=== PATIENT | male | born 1970 | race Caucasian/White ===

== ENCOUNTER → 2016-12-22 | Outpatient (CLI) | payer BC ==
[~2016-12-22] MED LIST: HYDUNK; METO1TAB69 PO; PANT40TA PO; PRZCUNK
--- NOTE | 2016-12-23 05:49 | PAP/PSG TECHNICIAN REPORT ---
[facility] Coat Tailor Polysomnogram Report Study name: None Report date: 12/23/2016 Study date: 12/22/2016 Referring Physician: Madalyn AYALA M.D. Name: CYRIL VELAZQUEZ Interpreting Physician: John Ayala M.D. Date of : 1970 Coat Tailor: Meghann Phipps RPSGT. Sex: Male Age: 46 Study Type: PSG PAP Weight: 286 lbs Height: 46 years, Height 5' 10.5" BMI: 40.45 Medications: LISINOPRIL-HCTZ 10-12.5 MG, PRILOSEC 20 MG Patient History 46 yr-old male here for a new CPAP treatment study. He was found to be positive for severe DERRICK via a home sleep study. He was set up with an auto CPAP machine at home. He is having trouble with mask leak and tolerating higher pressures. He is using an Yakelin View full face mask size medium from [employer]. The test was started on room air and 4 CMH2O. ETCO2 testing was not utilized during this study. Room 1 Parameters Monitored NPSG: E1-M2, E2-M1, Fp1-M2, Fp2-M1, F3-M2, F4-M2, F4-M1, C3-M2, C4-M2, C4-M1, O1-M2, O2-M2, O2-M1, T3-M2, T4-M1, P3-M2, P4-M1, CHIN1, CHIN2, HR, EKG, Legs, PFLOW, SNOR, FLOW, CFLOW, Tidal Volume, THOR, ABDO, SpO2, PLTH, CPRESS, ETCO2 Wave, ETCO2, pH Sleep Architecture Sleep Stages Time at Lights Off 10:27:16 PM STAGES Time (min.) TST (%) Time at Lights On 4:56:16 AM Wake 69.0 -- Total Recording Time (TRT) 389.00 min. N1 24.5 8 Total Sleep Period (TSP) 361.5 min. N2 182.0 57 Total Sleep Time (TST) 320.0min. N3 4.5 1 Awake Time 69.0 min. REM 109.0 34 Wake after Sleep Onset 62.5 min. Sleep Efficiency (SE) 82 % Sleep Onset Latency (GLADIS) 6.5 min. Number of Stage 1 Shifts None Awakenings 16 Stage Changes 66 Number of REM periods 4 REM 109.0 34 REM Latency 45.5 min. NREM 211.0 66 Body Position Analysis Supine Right Left Side Prone Vertical Total Sleep Time (min.) 153.1 213.0 0.0 213.00 0.0 0.0 Total Sleep Time (%) 33% 67% 0% 67 0% N/A% Total Sleep Time REM (min.) 39.0 70.0 0.0 None 0.0 0.0 Total Sleep Time NREM (min.) 68.0 143.0 0.0 None 0.0 0.0 Intermittent Wake (min.) 46.1 12.6 10.3 None 0.0 0.0 Total Sleep Period (%) 35% None None None None None Arousals Myoclonus (PLM) * Events Count Index Events Count Index Spontaneous 17 3 Events Awake (PLMW) 90 78.3 Respiratory 24 4.9 Events Asleep w/ Arousal (PLMA) 4 0.8 PLM 4 1 Events Asleep w/o Arousal (PLMS) 128 24.0 Snoring 9 2 Total Asleep 132 24.8 Total 53 10 Total 222 34 Respiratory Analysis * CA OA MA CH H RERA Total Count 6 1 0 0 101 3 108 Index 1.1 0.2 0.0 0 18.9 1 20.8 Mean Duration 12.9 13.8 0.0 0.00 17.8 15.2 17.4 Longest Duration 15.8 13.8 0.0 0.00 0.0 16.1 33.8 Respiratory Event Summary Total Supine ~Supine Right Left Prone REM NREM Apneas Count 7 3 4 4 N/A N/A 0 7 Index 1.3 2 1 1.1 N/A N/A 0 2 Hypopneas (4% Desat) Count 101 83 18 18 N/A N/A 5 96 Index 18.9 46.5 5 5.1 N/A N/A 2.8 27.3 Apneas & All Hypopneas Count 108 86 22 22 N/A N/A 5 103 Index 20.3 48 6 6 N/A N/A 2.8 29.3 Respiratory Events (Application Chemist+All Hyp+RERA) Count 108 88 23 23 N/A N/A 5 103 Index 20.8 49 6 6.5 N/A N/A 2.8 30.1 Respiratory Related Arousal Count 24 88 10 10 N/A N/A 0 26 Index 4.9 9 3 3 N/A N/A 0 7 Snoring Analysis Supine Right Left Prone REM NREM Total Snore duration 32.2 min Snores count 356 1,447 N/A N/A 151 1,652 1,803 Snore mean duration 1.1 Sec Snores index 200 408 N/A N/A 83.1 469.8 338.1 TST with snoring (%) 10.0% Desaturation Event Summary: Minimum %SpO2 Event Count Mean/Min/Max Duration(sec.) Desaturation Index % Time In Bed > 90 169 20.0 / 6.3 / 54.3 49.1 55.4 86 - 90 32 17.8 / 6.5 / 42.3 13.4 38.4 81 - 85 0 N/A 0.0 5.3 76 - 80 0 N/A 0.0 0.9 71 - 75 0 N/A 0.0 0.0 66 - 70 0 N/A 0.0 0.0 61 - 65 0 N/A 0.0 0.0 56 - 60 0 N/A 0.0 0.0 51 - 55 0 N/A 0.0 0.0 < 50 0 N/A 0.0 0.0 Total REM NREM Awake <50% 0.0 min. 0.0 min. 0.0 min. 0.0 min. 51 - 60% 0.0 min. 0.0 min. 0.0 min. 0.0 min. 61 - 70% 0.0 min. 0.0 min. 0.0 min. 0.0 min. 71 - 80% 3.4 min. 0.0 min. 2.8 min. 0.7 min. 81 - 90% 162.9 min. 47.0 min. 103.2 min. 12.7 min. 91 - 100% 206.5 min. 62.0 min. 104.9 min. 39.6 min. Average 90 91 90 92 Minimum SpO2 74 86 74 77 Desaturation Event Index 28.1 5.0 35.3 43.5 # Desat. Events below 89% 139 6 115 18 Time(%) with Saturation below 89% 16.6 2.9 11.1 2.6 Time(min.) with Saturation below 89% 62.1 10.8 41.5 9.8 Time (mins) REM (mins) NREM (mins) % of TST SpO2 Below 90% 130 9 N121 24.6 SpO2 Below 88% 40 0 0 10 Heart Rate Analysis Min (bpm) Max (bpm) Average (bpm) Awake 58 225 95 NREM 63 189 90 REM 73 104 90 Overall 63 189 90 Supplemental O2 Values Minimum O2 level: None Value Start Time End Time Coat Tailor Comments Mr. Velazquez slept in the right, left, and supine positions. No cardiac arrhythmias were noted. No bruxism noted. CPAP was initiated at +4 CMH2O and up-titrated to a level of +11 CMH2O, Cflex 3. He stated that when his pressure exceeds 10 CMH2O or more on his home CPAP machine, he has a hard time tolerating the pressure. He also stated that he is very sensitive to any leak from his mask. After he rolled to the supine position, the pressure had to be increased for more hypopneas. He was then switched to BiPAP at +13/9 CMH2O. He woke up soon after and stated that he was wide awake and was done wearing the mask for the night. No adjustments could be made to the BiPAP pressure. He requested to end the study at 4:50 am. An Yakelin View full face mask size medium from [employer] was used during titration He awoke to use the restroom one time during the night. Mr. Velazquez stated that he slept well. The final report will be interpreted and signed by a sleep physician. The completed physician report will then be placed in the patient medical record. Therapy Event: Therapy (cm H20) 4 6 8 10 11 13/9 Total Time at Pressure (min.) 21.7 8.4 10.3 159.6 162.3 26.7 TST at Pressure (min.) 8.7 8.4 10.3 129.1 157.8 5.7 # Periods 1 1 1 1 1 1 Sleep Onset (min.) 6.5 0.0 0.0 0.0 0.0 0.0 REM Onset (min.) N/A N/A N/A 11.7 15.6 N/A Sleep Efficiency % 40 100 100 80 97 21 Wakefulness (%) 59.9 0.0 0.0 19.1 2.8 78.5 Wakefulness (min.) 13.0 0.0 0.0 30.5 4.5 21.0 NREM 1 (%) 36.8 6.0 0.0 5.0 4.9 0.0 NREM 1 (min.) 8.0 0.5 0.0 8.0 8.0 0.0 NREM 2 (%) 3.3 94.0 100.0 48.0 49.8 21.5 NREM 2 (min.) 0.7 7.9 10.3 76.6 80.8 5.7 NREM 3 (%) 0.0 0.0 0.0 2.8 0.0 0.0 NREM 3 (min.) 0.0 0.0 0.0 4.5 0.0 0.0 REM (%) 0.0 0.0 0.0 25.1 42.5 0.0 REM (min.) 0.0 0.0 0.0 40.0 69.0 0.0 # Arousals 12 6 0 18 17 0 Arousal Index 82.6 43.0 0.0 8.4 6.5 0.0 # Snore 29 59 79 910 659 67 Snore Index 199.7 423.0 462.1 422.9 250.5 699.4 AHI 96.4 136.2 111.1 12.1 9.1 62.6 AHI Supine 80.5 136.2 111.1 76.2 20.9 62.6 AHI Non-Supine 120.0 N/A N/A 7.5 0.0 N/A NREM AHI 96.4 136.2 111.1 16.2 14.2 62.6 REM AHI N/A N/A N/A 3.0 2.6 N/A RDI 96.4 136.2 111.1 13.0 9.5 62.6 # Obstructive 1 0 0 0 0 0 # Central Ap 2 0 0 4 0 0 # Mixed 0 0 0 0 0 0 # Hypopneas 11 19 19 22 24 6 RERAS 0 0 0 2 1 0 Total Respiratory Events 14 19 19 28 25 6 Time Below SpO2 89.00% (min.) 2.7 5.5 6.6 9.4 24.6 3.6 Mean NREM SpO2 (%) 91 86 86 91 90 88 Mean REM SpO2 (%) N/A N/A N/A 92 90 N/A Mean Sleep SpO2 (%) 91 86 86 91 90 88 Min NREM SpO2 (%) 78 74 77 81 81 80 Min REM SpO2 (%) N/A N/A N/A 88 86 N/A Position Supine (min.) 5.2 8.4 10.3 8.7 68.8 5.7 Position Non-supine (min.) 3.5 0.0 0.0 120.4 89.1 0.0 LM Index Sleep 82.6 129.1 134.5 27.9 7.2 0.0 LM Index NREM 82.6 129.1 134.5 30.3 8.1 0.0 LM Index REM N/A N/A N/A 22.5 6.1 N/A Mean Heart Rate (bpm) 96 85 85 93 88 75 Min Heart Rate (bpm) 78 71 71 68 63 65 CPAP REPORT Therapy Detail Time / Page # Comment CPAP 4 cm H2O Full Face Mask Flex Pressure Relief Humidifier on 10:24:46 PM / pg. 129 CPAP 6 cm H2O Full Face Mask Flex Pressure Relief Humidifier on 10:48:59 PM / pg. 177 INCREASED FOR APNEAS AND HYPOPNEAS CPAP 8 cm H2O Full Face Mask Flex Pressure Relief Humidifier on 10:57:21 PM / pg. 194 INCREASE FOR HYPOPNEAS CPAP 10 cm H2O Full Face Mask Flex Pressure Relief Humidifier on 11:07:36 PM / pg. 214 INCREASED FOR HYPOPNEAS CPAP 11 cm H2O Full Face Mask Flex Pressure Relief Humidifier on 1:47:12 AM / pg. 533 INCREASED FOR HYPOPNEAS BiLevel 13/9 cm H2O Full Face Mask Flex Pressure Relief Humidifier on 4:29:31 AM / pg. 858 HE HAD STATED THAT HE CANNOT TOLERATE A PRESSURE MUCH ABOVE 10 CM AT HOME. DUE TO CONTINUED HYPOPNEAS, SWITCHED TO BIPAP TO 13/9
--- NOTE | 2017-01-09 18:39 | POLYSOMNOGRAPH REPORT ---
REFERRING PERSON: Dr. Morteza Ayala. INSURANCE AGENCY OWNER: Meghann Phipps. Mr. Summers is a 46-year-old male sent for CPAP titration study. He was found to have obstructive sleep apnea on home sleep testing. He has been using a CPAP auto at home. He has been having trouble with mask leak and tolerating higher pressures. He has chosen to use an Yakelin view medium [employer] mask for his titration. [place] Sleepiness Scale score on the evening of this study is not recorded. BMI is 40.45. Following the technical and digital specifications of the [place] [employer] (AASM) a standard diagnostic polysomnogram was performed monitoring EEG, EOG, EMG (chin and leg deviations), oxygen saturation, body position, digital video, respiratory effort and airflow. The sleep Stage and event scoring was based on the AASM Manual for the Scoring of Sleep and Associated Events 2007 edition. Apneas are defined as a drop in the peak thermal sensor excursion by >90% of baseline for at least 10 seconds. Hypopneas were scored using the 4% oxygen desaturation rule (4A-[employer]) and a decrease in the nasal pressure excursions by >30% of baseline for at least 10 seconds. Respiratory effort-related arousal (RERA's) is defined as a sequence of breaths lasting at least 10 seconds characterized by increasing respiratory effort or flattening of the nasal pressure waveform leading to an arousal from sleep when the sequence of breaths does not meet criteria for an apnea or hypopnea. Apnea Hypopnea index (AHI) is defined as the number of apneas and hypopneas occurring in an hour of sleep. Respiratory disturbance index (RDI) is defined as the number of apneas, hypopneas, and RERA's occurring in an hour of sleep. Mr. Summers's total sleep period time was 361.5 minutes. Total sleep time was 320 minutes. Sleep efficiency was 82%. Latency to sleep onset was 6.5 minutes with a wake after sleep onset was 62.5 minutes. Total non-REM sleep time was 211 minutes. He spent 8% of that time in N1 sleep, 57% in N2 sleep and 1% in N3 sleep. REM latency was 45.5 minutes which was short. Total REM sleep time was 109 minutes or 34% of sleep time. This is consistent with REM rebound. There were 53 cortical arousals from sleep. Twenty-four of these arousals were due to respiratory events, 4 due to periodic limb movements of sleep and 9 were due to snoring. There were 17 spontaneous arousals. There were 132 periodic limb movements. Limb movement index was 24.8. Limb movement with arousal index was 0.8. On this titration, Mr. Summers had 1 obstructive apnea, 6 central apneas and no mixed apneas. There were 101 hypopneas and 3 RERA. Apnea-hypopnea index was 20.3. 1803 snoring events were recorded. Total sleep time with snoring was 10%. Mean saturation was 90% with desaturations to 74%; however, saturations improved with improvement of sleep-disordered breathing. Saturations were less than 89% for 62.1 minutes of recording time. There was no cardiac ectopy noted on this study. During sleep, heart rates ranged from a low of 63 beats per minute to what appears to be 127 beats per minute. As stated above, this was a CPAP titration study. Mr. Summers was titrated from a CPAP pressure of 4 to a CPAP pressure of 11 during the course of the night. He was observed on a pressure of 11 for 157.8 minutes of sleep time. There were 69 minutes of REM sleep and supine REM sleep on this pressure. AHI and RDI on this pressure were 9.1 and 9.5 respectively. Saturations were less than 89 for 24.6 minutes of recording time. Due to patient comfort, at the end of this study, this patient was switched to bilevel therapy and was started on BiPAP therapy of 13/9. He had 6 hypopneic events during the 6 minutes of observation and all of this sleep was non-REM. IMPRESSION AND PLAN: Suboptimal titration study in this patient with known obstructive sleep apnea. His apnea-hypopnea index was low as 9.1 on a CPAP pressure of 11. However, due to patient discomfort, he was then switched to bilevel therapy and had quick series of hypopneic events. Given this patient's difficulty tolerating higher pressures on auto CPAP, this patient may benefit from auto bilevel therapy. His EPAP minimum should be 9 with a max pressure of 20 at a pressure support of 4. A download from his machine can be reviewed in 1 month to help set optimal pressure. It does appear that his hypoxemia does improve with increasing pressures.
== END | disposition home or self-care (01) ==
LOC: C.NEUR 20:00
PROVIDERS: ATTEND Family Medicine
DX: G47.33 Obstructive sleep apnea (adult) (pediatric) (principal); G47.34 Idiopathic sleep related nonobstructive alveolar hypoventilation